=== PATIENT | female | born 1935 | race African-American/Black ===

== ENCOUNTER 2017-07-25 17:57 | Emergency (ER) | payer MEDICARE, MEDICAID ==
[~2017-07-25] VITALS: Ht 162.6 cm; Wt 72.1 kg
[2017-07-25] MEDS ORDERED: Promethazine/Codeine 5ml UD ORAL ONE (18:30)
--- NOTE | 2017-07-25 18:31 | Emergency Room Report ---
History of Present Illness General Chief Complaint: Dyspnea/Respdistress Source: Patient, Family Member Present Illness HPI Patient presents with cough and dyspnea for 2 days. She denies any chest pain. She's been coughing up some phlegm. This been no color to the phlegm. She denies any asthma or wheezing. The cough has not kept her awake at night ( though her family state differently). She does get out of breath when she is walking. She denies having pneumonia in the past and has never smoked. There is slight amount of swelling in her ankles but no pain or calfs. Her appetite has been OK though she has felt slightly nauseated. Patient has diabetes and hypertension. She states her blood sugars are fairly well-controlled. No VD, rashes, headache, dysuria, back pain. Allergies: Coded Allergies: No Known Allergies (Unverified , 07/25/17) Patient History Past Medical History: see triage record Social History: Denies: smoking Social History Narrative at home Last Menstrual Period: na Reviewed Nursing Documentation: PMH: Agreed; PSxH: Agreed Nursing Documentation-PMH Hx Hypertension: Yes Hx Diabetes: Yes Review of Systems All Other Systems: negative except mentioned in HPI Physical Exam Vital Signs Date Time Temp Pulse Resp B/P (MAP) Pulse Ox O2 Delivery O2 Flow Rate FiO2 07/25/17 18:05 97.9 109 20 144/86 96 Room Air 97.9 Sp02 EP Interpretation: reviewed, normal General Appearance: well appearing, no apparent distress, GCS 15 Head: normocephalic Eyes: bilateral eye normal inspection, bilateral eye PERRL ENT: moist mucus membranes Neck: supple Respiratory: lungs clear, normal breath sounds Cardiovascular #1: regular rate, rhythm Cardiovascular #2: 2+ radial (R) Gastrointestinal: normal inspection, normal bowel sounds, non tender, no mass, non-distended Musculoskeletal: back normal, gait/station normal, normal range of motion Neurologic: alert, oriented x3, grossly normal Psychiatric: mood/affect normal Skin: normal inspection, warm/dry Medical Decision Making Diagnostic Impression: Primary Impression: Upper respiratory infection Qualified Codes: J06.9 - Acute upper respiratory infection, unspecified Additional Impression: UTI (urinary tract infection) Qualified Codes: N30.00 - Acute cystitis without hematuria ER Course Patient presents with dyspnea and cough. Differential includes pneumonia, bronchitis, bronchospasm, acute myocardial infarction, acute coronary syndrome amongst others. The patient will be evaluated with EKG, chest x-ray and labs. She states she's not been wheezing and therefore the back without T will probably not help. She'll be given Phenergan with codeine at this time. She's complaining about nausea also be treated with Zofran. EKG without injury. CXR no infiltrates. Labs with normal CBC, slightly low potassium, minimally elevated lactate and pyuria. Rocephin given for pyuria. Improved with decreased cough and feeling much better. Patient stable for outpatient observation and treatment. Laboratory Tests Test 07/25/17 18:41 07/25/17 18:53 Urine Color Vanessa Urine Appearance Slightly cloudy Urine pH 6.5 (4.5-8.0) Urine Specific [place] 1.010 (1.005-1.035) Urine Protein 1+ (NEGATIVE) H Urine Glucose (UA) 2+ (NEGATIVE) H Urine Ketones Negative (NEGATIVE) Urine Occult Blood 1+ (NEGATIVE) H Urine Nitrite Negative (NEGATIVE) Urine Bilirubin Negative (NEGATIVE) Urine Ictotest Negative Urine Urobilinogen Normal MG/DL (0.0-1.0) Urine Leukocyte Esterase 3+ (NEGATIVE) H Urine RBC 5-10 /HPF (0 - 2) H Urine WBC 30-40 /HPF (0 - 2) H Urine Squamous Epithelial Cells Many /LPF (NONE/OCC) H Urine Bacteria Many /HPF (NONE) H White Blood Count 9.1 K/UL (4.8-10.8) Red Blood Count 5.37 M/UL (4.20-5.40) Hemoglobin 13.1 G/DL (12.0-16.0) Hematocrit 40.7 % (37.0-47.0) Mean Corpuscular Volume 76 FL (80-99) L Mean Corpuscular Hemoglobin 24.4 PG (27.0-31.0) L Mean Corpuscular Hemoglobin Concent 32.2 G/DL (32.0-36.0) Red Cell Distribution Width 14.3 % (11.6-14.8) Platelet Count 233 K/UL (150-450) Mean Platelet Volume 6.3 FL (6.5-10.1) L Neutrophils (%) (Auto) 57.6 % (45.0-75.0) Lymphocytes (%) (Auto) 33.1 % (20.0-45.0) Monocytes (%) (Auto) 7.1 % (1.0-10.0) Eosinophils (%) (Auto) 1.1 % (0.0-3.0) Basophils (%) (Auto) 1.1 % (0.0-2.0) Prothrombin Time 10.5 SEC (9.30-11.50) Prothrombin Time INR 1.0 (0.9-1.1) PTT 27 SEC (23-33) Sodium Level 138 MMOL/L (136-145) Potassium Level 3.1 MMOL/L (3.5-5.1) L Chloride Level 97 MMOL/L (98-107) L Carbon Dioxide Level 29 MMOL/L (21-32) Anion Gap 12 mmol/L (5-15) Blood Urea Nitrogen 12 mg/dL (7-18) Creatinine 0.9 MG/DL (0.55-1.30) Estimate Glomerular Filtration Rate mL/min (>60) Glucose Level 207 MG/DL (74-106) H Lactic Acid Level 2.10 mmol/L (0.4-2.0) H Calcium Level 10.0 MG/DL (8.5-10.1) Total Bilirubin 0.3 MG/DL (0.2-1.0) Aspartate Amino Transferase (AST) 20 U/L (15-37) Alanine Aminotransferase (ALT) 29 U/L (12-78) Alkaline Phosphatase 70 U/L (46-116) Total Creatine Kinase 128 U/L (26-308) Troponin I 0.000 ng/mL (0.000-0.056) Pro-B-Type Natriuretic Peptide 90 pg/mL (0-125) Total Protein 9.5 G/DL (6.4-8.2) H Albumin 4.6 G/DL (3.4-5.0) Globulin 4.9 g/dL Albumin/Globulin Ratio 0.9 (1.0-2.7) L EKG Diagnostic Results Rate: normal Rhythm: NSR ST Segments: no acute changes Rhythm Strip Diag. Results EP Interpretation: yes Rhythm: NSR, no PVC's, no ectopy Chest X-Ray Diagnostic Results Chest X-Ray Diagnostic Results : Chest X-Ray Ordered: Yes # of Views/Limited/Complete: 1 View Indication: Shortness of Breath EP Interpretation: Yes Interpretation: no consolidation, no effusion, no pneumothorax Impression: No acute disease Electronically Signed by: Electronically signed by Vincenzo Schumacher MD Last Vital Signs Date Time Temp Pulse Resp B/P (MAP) Pulse Ox O2 Delivery O2 Flow Rate FiO2 07/25/17 21:18 97.6 79 18 132/70 97 Room Air 97.6 Status: improved Disposition: HOME, SELF-CARE Condition: Improved Scripts Guaifenesin/Codeine Phos* (ROBITUSSIN AC*) 118 Ml Liquid 5 ML ORAL Q6H PRN for For Cough, #90 ML 0 Refills Prov: Vincenzo Schumacher M.D. 07/25/17 Nitrofurantoin Monohyd/M-Cryst* (MACROBID 100 MG*) 100 Mg Capsule 100 MG ORAL EVERY 12 HOURS, #14 CAP Prov: Vincenzo Schumacher M.D. 07/25/17 Vincenzo Schumacher M.D. Jul 25, 2017 18:31
[2017-07-25 19:09] LABS: BASOPHILS % (AUTO) 1.1 % (0.0-2.0); EOSINOPHILS % (AUTO) 1.1 % (0.0-3.0); HEMATOCRIT 40.7 % (37.0-47.0); HEMOGLOBIN 13.1 G/DL (12.0-16.0); LYMPHOCYTES % (AUTO) 33.1 % (20.0-45.0); MEAN CORPUSCULAR VOLUME 76 FL (80-99); MONOCYTES % (AUTO) 7.1 % (1.0-10.0); NEUTROPHILS % (AUTO) 57.6 % (45.0-75.0); PLATELET COUNT 233 K/UL (150-450); RED BLOOD COUNT 5.37 M/UL (4.20-5.40); RED CELL DISTRIBUTION WIDTH 14.3 % (11.6-14.8); WHITE BLOOD COUNT 9.1 K/UL (4.8-10.8)
[2017-07-25 19:09] LABS: APPEARANCE,URINE SLIGHTLY CLOUDY; BILIRUBIN, URINE NEGATIVE (NEGATIVE); COLOR,URINE AMBER; GLUCOSE, URINE (UA) 2+ (NEGATIVE); KETONES,URINE NEGATIVE (NEGATIVE); LEUKOCYTE ESTERASE ,URINE 3+ (NEGATIVE); NITRITE,URINE NEGATIVE (NEGATIVE); PH,URINE 6.5 (4.5-8.0); PROTEIN,URINE 1+ (NEGATIVE); UROBILINOGEN,URINE NORMAL MG/DL (0.0-1.0)
[2017-07-25 19:10] VITALS: BP 126/69
[2017-07-25 19:25] LABS: ANION GAP 12 mmol/L (5-15); BLOOD UREA NITROGEN 12 mg/dL (7-18); CARBON DIOXIDE 29 MMOL/L (21-32); CHLORIDE 97 MMOL/L (98-107); CREATININE 0.9 MG/DL (0.55-1.30); POTASSIUM 3.1 MMOL/L (3.5-5.1); SODIUM 138 MMOL/L (136-145)
[2017-07-25 19:35] LABS: ALANINE AMINOTRANSFERASE 29 U/L (12-78); ALBUMIN 4.6 G/DL (3.4-5.0); ALBUMIN/GLOBULIN RATIO 0.9 (1.0-2.7); ALKALINE PHOSPHATASE 70 U/L (46-116); ASPARTATE AMINO TRANSFERASE 20 U/L (15-37); BILIRUBIN,TOTAL 0.3 MG/DL (0.2-1.0); CREATINE KINASE 128 U/L (26-308)
[2017-07-25] MEDS ORDERED: cefTRIAXone 1 GM in NS 55 ML IVPB ONE (20:00)
[2017-07-25 20:30] VITALS: BP 132/70
[2017-07-25] MEDS ORDERED: GUAIFENESIN-CO118 M1 ORAL (21:11)
[2017-07-25] MEDS ORDERED: NITROFURANTOIN100 M2 ORAL (21:11)
[2017-07-25 21:18] VITALS: BP_SYST 128; BP_SYST 132; BP_DIAS 64; BP_DIAS 70
--- NOTE | 2017-07-26 10:47 | Diagnostic Imaging Report ---
Indication: Cough Technique: One view of the chest Comparison: none Findings: Lungs and pleural spaces are clear. Heart size is normal Impression: No acute process
--- NOTE | 2017-07-26 13:32 | Cardiology Report ---
APPROVED REPORT EKG Measurement Heart [id number] Sinus tachycardia Cannot rule out Anterior infarct, age undetermined Abnormal ECG
== END 2017-07-25 21:15 | disposition home or self-care (01) ==
LOC: EMR 18:44
DX: J06.9 Acute upper respiratory infection, unspecified (principal); N30.00 Acute cystitis without hematuria; I10 Essential (primary) hypertension; E11.9 Type 2 diabetes mellitus without complications
CPT/HCPCS: 36415; 71045; 80053; 81003; 82550; 83605; 83880; 84484; 85025; 85610; 85730; 87086; 87181; 93005; 96360; 96374; 96375; 99284; J0696; J2405

== ENCOUNTER 2019-05-04 10:13 | Emergency (ER) | payer OTHER, MEDICAID ==
[~2019-05-04] VITALS: Ht 162.6 cm; Wt 71.2 kg
[~2019-05-04 10:13] MED LIST: GUAIFENESIN-CO118 M1 ORAL; NITROFURANTOIN100 M2 ORAL
[2019-05-04 10:17] VITALS: BP 153/77
[2019-05-04] MEDS ORDERED: LORATADINE-D 21 EACH PO (10:34)
--- NOTE | 2019-05-04 10:34 | Emergency Room Report ---
History of Present Illness General Chief Complaint: Skin Rash/Abscess Source: Patient Present Illness HPI 83-year-old female history of diabetes, hypertension presents with pruritus x2 weeks no aggravating or alleviating factor severity is mild, constant no fevers no chills no chest pain or shortness of breath patient presents for evaluation COVID-19 risk:Contact w/high r: No COVID-19 risk:Travel to affect: No Has patient experienced valiente: No Allergies: Coded Allergies: No Known Allergies (Unverified , 07/25/17) Patient History Past Medical History: see triage record Now: No : 10 Para: 10 Reviewed Nursing Documentation: PMH: Agreed; PSxH: Agreed Nursing Documentation-PMH Past Medical History: No History, Except For Hx Hypertension: Yes Hx Diabetes: Yes Review of Systems All Other Systems: negative except mentioned in HPI Physical Exam Vital Signs Date Time Temp Pulse Resp B/P (MAP) Pulse Ox O2 Delivery O2 Flow Rate FiO2 05/04/19 10:17 98.1 106 19 153/77 98 Room Air General Appearance: well appearing, no apparent distress Head: normocephalic, atraumatic ENT: hearing grossly normal, normal voice Neck: full range of motion, supple Respiratory: no respiratory distress, speaking full sentences Neurologic: alert, normal gait Psychiatric: mood/affect normal Skin: other - Excoriations on the bilateral lower extremities Medical Decision Making Diagnostic Impression: Primary Impression: Pruritus ER Course 83-year-old female presents with pruritus will provide patient with second generation antihistamine Disposition home with return precautions Last Vital Signs Date Time Temp Pulse Resp B/P (MAP) Pulse Ox O2 Delivery O2 Flow Rate FiO2 05/04/19 10:17 98.1 106 19 153/77 (102) 98 Room Air Disposition: HOME, SELF-CARE Condition: Stable Scripts Loratadine/Pseudoephedrine (LORATADINE-D 24HR TABLET) 1 Each Tab.er.24h 1 EACH PO DAILY PRN for Itching, #30 TAB Prov: Dk Perrin MD 05/04/19 Referrals: [facility] Patient Instructions: Rash, [id number] Additional Instructions: The patient was provided with discharge instructions, notified to follow-up with a primary care doctor and or specialist in the next 24-48 hours, and to return to the ED if they have worsening of their symptoms. Please note that this report is being documented using DRAGON technology. This can lead to erroneous entry secondary to incorrect interpretation by the dictating instrument. Dk Perrin MD May 04, 2019 10:34
== END 2019-05-04 11:00 | disposition home or self-care (01) ==
LOC: EMR 10:43
DX: L29.9 Pruritus, unspecified (principal); I10 Essential (primary) hypertension; E11.9 Type 2 diabetes mellitus without complications
CPT/HCPCS: 99281